=== PATIENT | female | born 1980 | race African-American/Black ===

== ENCOUNTER 2019-07-04 13:28 | Emergency (ER) | payer OTHER ==
[~2019-07-04] VITALS: Ht 162.6 cm; Wt 63.5 kg
[2019-07-04] MEDS ORDERED: LORazepam Inj 2mg/ml 1ml IM ONE (13:30)
[2019-07-04] MEDS ORDERED: DiphenhydrAMINE 50mg/ml Inj IM ONE (13:30)
[2019-07-04] MEDS ORDERED: Haloperidol 5mg/ml Inj IM ONE (13:30)
[2019-07-04] MEDS ORDERED: LORazepam Inj 2mg/ml 1ml ONE (13:34)
[2019-07-04] MEDS ORDERED: DiphenhydrAMINE 50mg/ml Inj ONE (13:35)
[2019-07-04] MEDS ORDERED: Haloperidol 5mg/ml Inj ONE (13:35)
--- NOTE | 2019-07-04 13:47 | NUR ---
ED Nurse Note: Patient brought into ED by ambulance in custody by police. A friend of the patient called the police stating that she was vandalizing his car, smashing out windows, throwing rocks, and scratching the paint. When police arrived at the scene, patient was yelling obscenities and acting erratically. Patient arrived to ED on a gurney, handcuffed, screaming obscenities at the hospital staff and police. Per Dr. Krishnan, Bradivan, Haldol, and Benadryl given to patient. Patient currently resting in bed, no s/s of acute distress. Police at bedside. Will closely monitor the patient.
--- NOTE | 2019-07-04 13:50 | NUR ---
Note eyal in EDM - 07/04/19 at 1545 by CARLOS ED Nurse Note: Patient not placed in restraints as the patient is in 4 point handcuffs d/t being in police custody. Police at bedside.
[2019-07-04 13:51] VITALS: BP 129/78
--- NOTE | 2019-07-04 13:55 | NUR ---
ED Nurse Note: Patient given medications per Dr. Krishnan. Will continue to monitor, police at bedside.
--- NOTE | 2019-07-04 14:36 | Emergency Room Report ---
History of Present Illness General Chief Complaint: Medical Clearance Source: EMS, Law Enforcement Present Illness HPI Patient brought in by [facility]. They were contacted by [employer] because the patient needed medical clearance. [employer] was contacted by boyfriend. She apparently is being arrested for felony vandalism. The patient refuses to answer any questions. She is combative and screaming. Allergies: Coded Allergies: UNABLE TO ASSESS (Unverified , 07/04/19) Patient History Limited by: medical condition Past Medical History: see triage record Social History: Reports: alcohol use - See labs Social History Narrative with boyfriend Last Menstrual Period: unknown Reviewed Nursing Documentation: PMH: Agreed; PSxH: Agreed Nursing Documentation-PMH Past Medical History: Deferred Review of Systems All Other Systems: limited Physical Exam Vital Signs Date Time Temp Pulse Resp B/P (MAP) Pulse Ox O2 Delivery O2 Flow Rate FiO2 07/04/19 13:49 110 18 129/78 (95) 99 Room Air Sp02 EP Interpretation: reviewed, normal General Appearance: alert, non-toxic, moderate distress, thin Head: normocephalic, atraumatic Eyes: bilateral eye PERRL, bilateral eye EOMI, bilateral eye Scleral Injection ENT: moist mucus membranes Neck: full range of motion, supple Respiratory: other - will not allow exam Cardiovascular #1: other - will not allow exam Gastrointestinal: other - will not allow exam, scaphoid Musculoskeletal: normal range of motion Neurologic: alert, motor strength/tone normal Psychiatric: other - abusive and threatening Skin: no rash - exposed skin Medical Decision Making Medical: Alcohol Abuse Reaction to Intervention: No change Restraint Reassesment I, García Krishnan MD, have personally evaluated this patient. Laboratory tests have been ordered. The patient is deemed to present a danger to others. This is based on the exam, history (provided by EMS and [employer]) and observed behavior. Attempts for non-invasive measures have been considered and/or attempted, however, have been futile. It is in the best interest of the nursing staff, the patient, and others involved in this patient's care that behavioral restraints be applied. Patient evaluation reveals the following: Screaming, refusing to answer question , threatening staff and not responding to attempts at de-escalation. Diagnostic Impression: Primary Impression: Psychosis, transient Additional Impression: Alcohol intoxication Qualified Codes: F10.929 - Alcohol use, unspecified with intoxication, unspecified ER Course Patient presents for medical clearance. Unable to obtain history or assess patient as she is violent and abusive and not responding to attempts to calm. Differential includes substance abuse, electrolyte imbalance, exacerbation of underlying psycopathy amongst others. Assessment with EKG, and labs. Unable to do so because patient is combative at this time. Patient violent and noncooperative. All attempts at her down are ineffective. Hard restraints and sedation indicated. 1400 patient sedated. Lungs clear. No murmur. No edema. Decreased bowel sounds. After sedation patient able to answer questions. She denies prior psychiatric illness. She denies drug use. She does not believe she is . She denies pain in her body at this time. She is sleepy and therefore the accuracy of these answers is somewhat questionable. Labs are pending. No imaging indicated at this time. EKG no injury. Labs significant for elevated blood alcohol. Tox screen negative. 1530 - easily aroused but sill sleepy. Follows commands. Patient stable for booking. Laboratory Tests Test 07/04/19 14:30 White Blood Count 7.8 K/UL (4.8-10.8) Red Blood Count 4.50 M/UL (4.20-5.40) Hemoglobin 13.0 G/DL (12.0-16.0) Hematocrit 38.1 % (37.0-47.0) Mean Corpuscular Volume 85 FL (80-99) Mean Corpuscular Hemoglobin 28.8 PG (27.0-31.0) Mean Corpuscular Hemoglobin Concent 34.0 G/DL (32.0-36.0) Red Cell Distribution Width 12.1 % (11.6-14.8) Platelet Count 279 K/UL (150-450) Mean Platelet Volume 6.3 FL (6.5-10.1) L Neutrophils (%) (Auto) 71.6 % (45.0-75.0) Lymphocytes (%) (Auto) 20.8 % (20.0-45.0) Monocytes (%) (Auto) 5.8 % (1.0-10.0) Eosinophils (%) (Auto) 0.4 % (0.0-3.0) Basophils (%) (Auto) 1.4 % (0.0-2.0) Urine Color Pale yellow Urine Appearance Clear Urine pH 6.5 (4.5-8.0) Urine Specific [place] 1.015 (1.005-1.035) Urine Protein Negative (NEGATIVE) Urine Glucose (UA) Negative (NEGATIVE) Urine Ketones 1+ (NEGATIVE) H Urine Blood Negative (NEGATIVE) Urine Nitrite Negative (NEGATIVE) Urine Bilirubin Negative (NEGATIVE) Urine Urobilinogen Normal MG/DL (0.0-1.0) Urine Leukocyte Esterase Negative (NEGATIVE) Urine HCG, Qualitative Negative (NEGATIVE) Sodium Level 147 MMOL/L (136-145) H Potassium Level 3.8 MMOL/L (3.5-5.1) Chloride Level 109 MMOL/L (98-107) H Carbon Dioxide Level 25 MMOL/L (21-32) Anion Gap 13 mmol/L (5-15) Blood Urea Nitrogen 18 mg/dL (7-18) Creatinine 1.2 MG/DL (0.55-1.30) Estimate Glomerular Filtration Rate 49.8 mL/min (>60) Glucose Level 99 MG/DL (74-106) Calcium Level 8.8 MG/DL (8.5-10.1) Total Bilirubin 0.2 MG/DL (0.2-1.0) Aspartate Amino Transferase (AST) 20 U/L (15-37) Alanine Aminotransferase (ALT) 20 U/L (12-78) Alkaline Phosphatase 72 U/L (46-116) Creatine Kinase MB 2.0 NG/ML (0.0-3.6) Troponin I 0.000 ng/mL (0.000-0.056) Total Protein 7.5 G/DL (6.4-8.2) Albumin 3.7 G/DL (3.4-5.0) Globulin 3.8 g/dL Albumin/Globulin Ratio 1.0 (1.0-2.7) Salicylates Level 1.9 ug/mL (2.8-20) L Urine Opiates Screen Negative (NEGATIVE) Acetaminophen Level < 2 MCG/ML (10-30) L Urine Barbiturates Screen Negative (NEGATIVE) Phencyclidine (PCP) Screen Negative (NEGATIVE) Urine Amphetamines Screen Negative (NEGATIVE) Urine Benzodiazepines Screen Negative (NEGATIVE) Urine Cocaine Screen Negative (NEGATIVE) Urine Marijuana (THC) Screen Negative (NEGATIVE) Serum Alcohol 141 mg/dL EKG Diagnostic Results Rate: normal Rhythm: NSR ST Segments: no acute changes - LAE Rhythm Strip Diag. Results EP Interpretation: yes Rhythm: NSR, no PVC's, no ectopy Last Vital Signs Date Time Temp Pulse Resp B/P (MAP) Pulse Ox O2 Delivery O2 Flow Rate FiO2 07/04/19 16:41 98.1 89 17 125/21 100 Room Air Status: improved Disposition: D/C TO LAW ENFORCEMENT IN [facility] Condition: Improved García Krishnan MD Jul 04, 2019 14:36
--- NOTE | 2019-07-04 14:45 | NUR ---
ED Nurse Note: Patient resting in bed, no s/s of acute distress. Blood and urine sent to lab.
[2019-07-04 15:01] LABS: APPEARANCE,URINE CLEAR; BILIRUBIN, URINE NEGATIVE (NEGATIVE); COLOR,URINE PALE YELLOW; GLUCOSE, URINE (UA) NEGATIVE (NEGATIVE); KETONES,URINE 1+ (NEGATIVE); LEUKOCYTE ESTERASE ,URINE NEGATIVE (NEGATIVE); NITRITE,URINE NEGATIVE (NEGATIVE); PH,URINE 6.5 (4.5-8.0); PROTEIN,URINE NEGATIVE (NEGATIVE); UROBILINOGEN,URINE NORMAL MG/DL (0.0-1.0)
[2019-07-04 15:03] LABS: BASOPHILS % (AUTO) 1.4 % (0.0-2.0); EOSINOPHILS % (AUTO) 0.4 % (0.0-3.0); HEMATOCRIT 38.1 % (37.0-47.0); LYMPHOCYTES % (AUTO) 20.8 % (20.0-45.0); MEAN CORPUSCULAR VOLUME 85 FL (80-99); MONOCYTES % (AUTO) 5.8 % (1.0-10.0); NEUTROPHILS % (AUTO) 71.6 % (45.0-75.0); PLATELET COUNT 279 K/UL (150-450); RED CELL DISTRIBUTION WIDTH 12.1 % (11.6-14.8); WHITE BLOOD COUNT 7.8 K/UL (4.8-10.8)
[2019-07-04 15:28] LABS: ANION GAP 13 mmol/L (5-15); BLOOD UREA NITROGEN 18 mg/dL (7-18); CALCIUM 8.8 MG/DL (8.5-10.1); CARBON DIOXIDE 25 MMOL/L (21-32); CHLORIDE 109 MMOL/L (98-107); CREATININE 1.2 MG/DL (0.55-1.30); POTASSIUM 3.8 MMOL/L (3.5-5.1); SODIUM 147 MMOL/L (136-145)
--- NOTE | 2019-07-04 15:33 | NUR ---
ED Nurse Note: Dr. Krishnan at bedside. Patient resting in bed, no s/s of acute distress noted.
[2019-07-04 15:39] LABS: ALANINE AMINOTRANSFERASE 20 U/L (12-78); ALBUMIN 3.7 G/DL (3.4-5.0); ALKALINE PHOSPHATASE 72 U/L (46-116); ASPARTATE AMINO TRANSFERASE 20 U/L (15-37); BILIRUBIN,TOTAL 0.2 MG/DL (0.2-1.0)
[2019-07-04 16:41] VITALS: BP 125/21
--- NOTE | 2019-07-04 16:41 | NUR ---
ED Nurse Note: Patient able to walk with steady gait, no s/s of acute distress. Patient cleared by Dr. Krishnan for DC. Patient given DC paperwork and police filled-out and signed appropriate documentation in the forensic log. All belongings with police. Patient verbalized understanding of DC instructions and escorted by police out of hospital.
== END 2019-07-04 16:41 ==
LOC: EDBD 13:28 → EMR 15:40 → EDBD 15:40 → EMR 16:41
DX: F23 Brief psychotic disorder (principal); F10.929 Alcohol use, unspecified with intoxication, unspecified; Y90.6 Blood alcohol level of 120-199 mg/100 ml
CPT/HCPCS: 36415; 80053; 80307; 81003; 81025; 82553; 82962; 84484; 85025; 93005; 96360; 96372; 99284; G0480; J1200; J1630; J7030